=== PATIENT | male | born 1990 | race American Indian/Alaskan Native ===

== ENCOUNTER 2017-03-22 14:20 | Emergency (ER) | payer SELFPAY ==
--- NOTE | 2017-03-22 15:12 | XRay Report ---
LEFT THUMB: History: Trauma. The bony architecture is intact. Bony alignment is normal. No soft tissue abnormalities are seen. The joint spaces appear preserved. IMPRESSION: Normal left thumb.
[2017-03-22] MEDS ORDERED: XYLOCAINE 1% 20 mL INFILTRATI ONE (17:33)
[2017-03-22] MEDS ORDERED: BOOSTRIX IM ONE (17:33)
--- NOTE | 2017-03-22 18:19 | Emergency Department Report ---
Entered by MERLIN SIMON, acting as scribe for TRACI PALMA NP. ED Upper Extremity Inj HPI - General Chief Complaint: Extremity Injury, Upper Stated Complaint: LT THUMB SWOLLEN Time Seen by Provider: 03/22/17 17:25 Source: patient Mode of arrival: Ambulatory Limitations: No Limitations - History of Present Illness Initial Comments: 26 y/o male with no significant PMHx c/o left thumb pain and swelling that began 2 weeks ago, worsening today. Patient states his left thumb was slammed in the sneeze gaud at work 2 weeks ago. Rates pain an 8/10 in severity, which he describes as throbbing in quality. Denies bleeding, fever, chills, numbness, tingling, and drainage. Left thumb pain worsens with movement. Applied ice and elevated thumb with no relief. Not UTD with tetanus. NKDA. 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 denies: weakness, numbness, suspects foreign body, nausea/vomiting, heard/felt popping sensat, other (fever , chills, bleeding, and drainage) Treatments Prior to Arrival: cold therapy (ice applications) - Related Data Previous Rx's Medication Instructions Recorded Last Taken Type Cephalexin [Keflex] 500 mg PO Q6HR #40 capsule 03/22/17 Unknown Rx Ibuprofen [Motrin] 600 mg PO Q8H PRN #15 tablet 03/22/17 Unknown Rx Sulfamethoxazole/Trimethoprim 1 each PO BID #20 tablet 03/22/17 Unknown Rx [Bactrim DS TAB] traMADol [Ultram] 50 mg PO Q6HR PRN #12 tablet 03/22/17 Unknown Rx Allergies Allergy/AdvReac Type Severity Reaction Status Date / Time No Known Allergies Allergy Unverified 03/22/17 14:35 ED Review of Systems Comment: All other systems reviewed and negative Constitutional: no symptoms reported. denies: chills, fever ENT: denies: ear pain, throat pain Respiratory: no symptoms reported. denies: cough, shortness of breath, wheezing Cardiovascular: denies: chest pain, palpitations Endocrine: no symptoms reported Gastrointestinal: denies: nausea, vomiting Genitourinary: denies: urgency, dysuria Musculoskeletal: joint swelling (left thumb), myalgia (left thumb pain with no bleeding or drainage). denies: back pain, arthralgia Skin: denies: rash, lesions Neurological: denies: numbness, paresthesias, other (tingling) Hematological/Lymphatic: denies: easy bleeding, easy bruising ED Past Medical Hx - Past Medical History Previous Medical History?: No - Surgical History Past Surgical History?: No - Social History Smoking Status: Current Every Day Smoker (Vapes) Substance Use Type: None - Medications Home Medications: Home Medications Medication Instructions Recorded Confirmed Last Taken Type Cephalexin [Keflex] 500 mg PO Q6HR #40 capsule 03/22/17 Unknown Rx Ibuprofen [Motrin] 600 mg PO Q8H PRN #15 tablet 03/22/17 Unknown Rx Sulfamethoxazole/Trimethoprim 1 each PO BID #20 tablet 03/22/17 Unknown Rx [Bactrim DS TAB] traMADol [Ultram] 50 mg PO Q6HR PRN #12 tablet 03/22/17 Unknown Rx ED Physical Exam - General Limitations: No Limitations General appearance: alert, in no apparent distress, obese - Head Head exam: Present: atraumatic, normocephalic - Eye Eye exam: Present: normal appearance, EOMI Pupils: Present: normal accommodation - ENT ENT exam: Present: normal exam, mucous membranes moist - Neck Neck exam: Present: normal inspection, full ROM. Absent: lymphadenopathy - Respiratory Respiratory exam: Present: normal lung sounds bilaterally. Absent: respiratory distress, wheezes, rales, rhonchi, stridor - Cardiovascular Cardiovascular Exam: Present: regular rate, normal rhythm - GI/Abdominal GI/Abdominal exam: Present: soft. Absent: tenderness - Extremities Exam Extremities exam: Present: full ROM, tenderness (left thumb), normal capillary refill, joint swelling (left thumb) - Expanded Upper Extremity Exam Left Shoulder Exam: Present: normal inspection, full ROM Upper Arm exam: Present: normal inspection, full ROM Elbow exam: Present: normal inspection, full ROM Forearm Wrist exam: Present: normal inspection, full ROM Hand Wrist exam: Present: full ROM, tenderness (left thumb), swelling (left thumb), other (left thumb paronychia present). Absent: abrasion, laceration, ecchymosis, deformity, crepidus, dislocation, erythema, amputation, nail avulsion Neuro motor exam: Present: wrist extension intact, thumb opposition intact, thumb adduction intact Vascular: Present: normal capillary refill, radial pulse (2+), brachial pulse. Absent: vascular compromise, Pallo, pulse deficit radial art, pulse deficit ulnar art, pulse deficit brachial art - Back Exam Back exam: Present: normal inspection - Neurological Exam Neurological exam: Present: alert, oriented X3 - Psychiatric Psychiatric exam: Present: normal affect, normal mood - Skin Skin exam: Present: warm, dry, intact, erythema (to L thumb ). Absent: rash ED Course Vital Signs 03/22/17 14:35 Temperature 99.1 F Pulse Rate 103 H Respiratory 18 Rate Blood Pressure 156/91 O2 Sat by Pulse 99 Oximetry - Reevaluation(s) Reevaluation #1: 03/22/17 18:10 PT tolerated drainage. PT aware of plan of care. PT has no questions at this time. - I & D Left Finger Type of Procedure: Complex Site: L thumb Blade Size: 11 I & D Procedure: betadine prep, sterile drapes applied, sterile dressing applied , no gauze wick placed (too small ) - Nerve Block Consent Obtained: verbal consent Time Out Performed: No Local Anesthetic Used: Lidocaine 1% Amount of anesthesia used: 6 (ml) Side: left Nerve Blocks: digital Procedure Successful: Yes Complications: none Patient Tolerated Procedure: well - Pulse Oximetry Interpretation Digit-Finger Initial Pulse Oximetry Readin Actions Taken: none ED Medical Decision Making - Radiology Data Radiology results: report reviewed L thumb - NAP - Differential Diagnosis fracture, contusion, cellulitis, parynchia Critical Care Time: No ED Disposition Clinical Impression: Paronychia of left thumb Cellulitis Qualifiers: Site of cellulitis: extremity Site of cellulitis of extremity: finger Laterality: left Qualified Code(s): L03.012 - Cellulitis of left finger Disposition: DISCHARGED TO HOME OR SELFCARE Is pt being admited?: No Does the pt Need Aspirin: No Condition: Stable Instructions: Paronychia (ED), Cellulitis (ED) Additional Instructions: Warm compresses Refrain from vaping No driving or ETOH after taking Ultram Return to the ED in 2 days for wound recheck follow up with PCP in 3-5 days for BP recheck Prescriptions: Cephalexin [Keflex] 500 mg PO Q6HR #40 capsule Ibuprofen [Motrin] 600 mg PO Q8H PRN #15 tablet PRN Reason: Pain Sulfamethoxazole/Trimethoprim [Bactrim DS TAB] 1 each PO BID #20 tablet traMADol [Ultram] 50 mg PO Q6HR PRN #12 tablet PRN Reason: Pain Referrals: PRIMARY CARE,MD [Primary Care Provider] - 3-5 Days DENNISE HODGES MD [Staff Physician] - 3-5 Days [facility] [Outside] - 3-5 Days [facility] [Outside] - 3-5 Days Forms: Work/School Release Form(ED) Time of Disposition: 18:15 This documentation as recorded by the AURORA king JASMINE,accurately reflects the service I personally performed and the decisions made by LOUIE chairez TRACY M, NEGIN.
[2017-03-22 18:35] VITALS: BP 151/88
== END 2017-03-22 18:33 | disposition home or self-care (01) ==
LOC: ED 14:20
DX: L03.012 Cellulitis of left finger (principal)
CPT/HCPCS: 90471; 90715; 99283